=== PATIENT | female | born 1975 | race Caucasian/White ===

== ENCOUNTER 2016-12-09 11:37 | Emergency (ER) | payer SELFPAY ==
[2016-12-09 11:43] VITALS: BP 112/54; PULSE 92; TEMP 98; BMI 30.7
[2016-12-09] MEDS ORDERED: IBUPROFEN 600 MG TABLET (FP) PO ONE ×2 (12:18→12:19)
--- NOTE | 2016-12-09 12:23 | PDOC ---
History of Present Illness - General Chief Complaint: Pain Stated Complaint: HEADACHES, NAUSEA, PAIN/ HAND, LEG Time Seen by Provider: 12/09/16 11:47 History Source: Patient Exam Limitations: No Limitations - History of Present Illness Initial Comments: 12/09/16 12:20 Patient came to emergency department for evaluation of generalized body aches, chills, mild nausea with one episode of emesis this morning. And headache pain. States son is ill with a viral gastroenteritis and wonders if obtaining the same Timing/Duration: unsure, 24 hours Severity: mild, moderate Associated Symptoms: reports: fever/chills, headaches, malaise, nausea/vomiting Past History - Travel Traveled outside of the country in the last 30 days: No Close contact w/someone who was outside of country & ill: No - Past Medical History Allergies/Adverse Reactions: Allergies Allergy/AdvReac Type Severity Reaction Status Date / Time No Known Allergies Allergy Verified 12/09/16 11:43 Home Medications: Ambulatory Orders NK [No Known Home Medication] 12/09/16 Other medical history: DENIES - Surgical History Appendectomy: Yes - Psycho/Social/Smoking Cessation Hx Anxiety: No Suicidal Ideation: No Smoking History: Former smoker Have you smoked in the past 12 months: No If you are a former smoker, when did you quit?: 20 YRS AGO Information on smoking cessation initiated: No Hx Alcohol Use: Yes (SOCIAL) Drug/Substance Use Hx: No Substance Use Type: None Review of Systems - Review of Systems Able to Perform ROS?: Yes Is the patient limited Armenian proficient: Yes Constitutional: Yes: Symptoms Reported, See HPI, Chills, Malaise, Weakness. No : Fever HEENTM: Yes: See HPI, Nose Congestion. No: Symptoms Reported, Eye Pain, Difficulty Swallowing, Mouth Swelling Respiratory: Yes: Symptoms reported, See HPI, Cough (non productive) ABD/GI: Yes: Symptoms Reported, See HPI, Nausea, Vomiting. No: Diarrhea Musculoskeletal: Yes: Symptoms Reported, See HPI, Muscle Pain All Other Systems: Reviewed and Negative *Physical Exam - Vital Signs Last Vital Signs Temp Pulse Resp BP Pulse Ox 98.0 F 92 H 20 112/54 97 12/09/16 11:38 12/09/16 11:38 12/09/16 11:38 12/09/16 11:38 12/09/16 11:38 - Physical Exam General Appearance: Yes: Appropriately Dressed, Apparent Distress HEENT: positive: EOMI, AIDEN, Normal ENT Inspection, TMs Normal, Pharynx Normal Neck: positive: Supple. 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-XII NML intact, Fully Oriented, Alert, Normal Mood/ Affect, Normal Response, Motor Strength 10/13 *DC/Admit/Observation/Transfer Diagnosis at time of Disposition: Viral illness - Discharge Dispostion Disposition: HOME Condition at time of disposition: Stable Admit: No - Patient Instructions Printed Discharge Instructions: DI for Viral Gastroenteritis -- Adult Additional Instructions: Rest, drink lots of fluids: Teas, water, soups Elizabeth gwen, carbonated beverages for the bubbles May try peppermint teas Avoid heavy , spicy or fatty foods until symptoms have resolved Avoid contact with others until fevers and symptoms resolved Lots of handwashing and good hygiene Continue [id number] medications for symptomatic relief Tylenol or Motrin for fever and pain Followup with private physician in one to 2 days as needed Return to emergency department for worsened symptoms, fevers, dehydration - Post Discharge Activity Work/School Note: Back to Work
== END 2016-12-09 12:28 | disposition home or self-care (01) ==
LOC: EDBD 11:37 → JERFT 11:37
DX: A08.4 Viral intestinal infection, unspecified (principal); B97.89 Other viral agents as the cause of diseases classified elsewhere
CPT/HCPCS: 99281-25